=== PATIENT | female | born 1970 ===

== ENCOUNTER 2017-02-04 18:43 | Emergency (ER) | payer OTHER, SELFPAY ==
[2017-02-04 19:13] VITALS: BP 132/76; PULSE 71; RESP 18; TEMP 98.5; O2SAT 99
[2017-02-04] MEDS ORDERED: Sodium Chloride 0.9% 1,000 ML IV STA (19:24)
--- NOTE | 2017-02-04 19:27 | ED PDOC ---
HPI: Abdomen Time Seen by Provider: 02/04/17 19:25 Chief Complaint (Nursing): Abdominal Pain Chief Complaint (Provider): abdominal pain/vomiting History Per: Patient (47 y/o female here with intermittent epigastric pain daily in AM improved with food x 1 week. Notes moderate sore throat with difficulty swallowing also in AM. Notes increased urinary effort. Notes vomiting yesterday. Denies any diarrhea/uri/fevers/abdominal surgeries.) Past Medical History Reviewed: Historical Data, Nursing Documentation, Vital Signs Vital Signs: Last Vital Signs Temp 98.5 F 02/04/17 19:08 Pulse 71 02/04/17 19:08 Resp 18 02/04/17 19:08 BP 132/76 02/04/17 19:08 Pulse Ox 99 02/04/17 20:02 - Family History Family History: States: No Known Family Hx - Allergies Allergies/Adverse Reactions: Allergies Allergy/AdvReac Type Severity Reaction Status Date / Time No Known Allergies Allergy Verified 01/22/16 23:31 Review of Systems ROS Statement: Except As Marked, All Systems Reviewed And Found Negative ENT: Positive for: Throat Pain Gastrointestinal: Positive for: Vomiting, Abdominal Pain Physical Exam - Reviewed Nursing Documentation Reviewed: Yes Vital Signs Reviewed: Yes - Physical Exam Appears: Positive for: Well, Non-toxic, No Acute Distress Head Exam: Positive for: ATRAUMATIC, NORMAL INSPECTION, NORMOCEPHALIC Skin: Positive for: Normal Color, Warm, DRY Eye Exam: Positive for: EOMI, Normal appearance, PERRL ENT: Positive for: Normal ENT Inspection Neck: Positive for: Normal, Painless ROM Cardiovascular/Chest: Positive for: Regular Rate, Rhythm Respiratory: Positive for: CNT, Normal Breath Sounds Gastrointestinal/Abdominal: Positive for: Normal Exam (Obese abdomen.), Bowel Sounds, Soft, Tenderness (epigastric tendenress.) Back: Positive for: Normal Inspection Extremity: Positive for: Normal ROM Neurologic/Psych: Positive for: Alert, Oriented - ECG O2 Sat by Pulse Oximetry: 99 - Progress ED Course And Treament: Pepcid 20 mg iv x 1 dose Zofran 4 mg iv x 1 dose NS 1 liter wide open Disposition - Clinical Impression Clinical Impression: Abdominal pain in female - Patient ED Disposition Is Patient to be Admitted: Transfer of Care - Disposition Disposition: Transfer of Care Disposition Time: 20:02 Condition: FAIR Patient Signed Over To: Bhavesh Taylor
[2017-02-04 20:39] LABS: BASO # 0.1 K/uL (0.0-0.2); BASO % 1.3 % (0.0-2.0); EOS # 0.1 K/uL (0.0-0.7); EOS % 1.5 % (0.0-4.0); HEMATOCRIT 38.9 % (34.0-47.0); LYMPH % 40.9 % (20.0-40.0); MEAN CELL VOLUME 91.8 fl (81.0-99.0); MEAN CORPUSCULAR HEMOGLOBIN 30.6 pg (27.0-31.0); MEAN CORPUSCULAR HGB CONC 33.4 g/dL (33.0-37.0); MEAN PLATELET VOLUME 8.6 fl (7.2-11.7); MONO # 0.6 K/uL (0.0-0.8); MONO % 6.6 % (0.0-10.0); NEUT # 4.9 K/uL (1.8-7.0); NEUT % 49.7 % (50.0-75.0); RED CELL DISTRIBUTION WIDTH 12.9 % (11.5-14.5); WHITE BLOOD COUNT 9.8 K/uL (4.8-10.8)
[2017-02-04 20:42] LABS: RBC URINE 1 /hpf (0-3); URINE BILIRUBIN NEGATIVE (NEGATIVE); URINE BLOOD SMALL (NEGATIVE); URINE COLOR STRAW (YELLOW); URINE GLUCOSE (UA) NEG (Normal); URINE KETONE NEGATIVE (NEGATIVE); URINE LEUKOCYTE ESTERASE TRACE Leu/uL (Negative); URINE PROTEIN NEGATIVE (NEGATIVE); URINE UROBILINOGEN 0.2-1.0 mg/dL (0.2-1.0); WBC URINE < 1 /hpf (0-5)
[2017-02-04 20:56] LABS: ALB/GLOB RATIO 1.1 (1.0-2.1); ALKALINE PHOSPHATASE 99 U/L (38-126); ALT/SGPT 47 U/L (9-52); AST/SGOT 30 U/L (14-36); BILIRUBIN,TOTAL 0.3 mg/dl (0.2-1.3); BLOOD UREA NITROGEN 9 mg/dl (7-17); CALCIUM 9.3 mg/dL (8.4-10.2); CARBON DIOXIDE 27 mmol/L (22-30); CHLORIDE 104 mmol/L (98-107); GFR AFRICAN-AMERICAN > 60; GLUCOSE,RANDOM 107 mg/dL (65-105); LIPASE 116 U/L (23-300); SODIUM 140 mmol/l (132-148); TOTAL PROTEIN 8.3 G/DL (6.3-8.2)
--- NOTE | 2017-02-04 21:23 | US ---
EXAM: US Abdomen Limited, Right Upper Quadrant CLINICAL HISTORY: 47 years old, female; Signs and symptoms; Vomiting; Additional info: Evaluate for gallstone TECHNIQUE: Real-time ultrasound of the right upper quadrant with image documentation. COMPARISON: No relevant prior studies available. FINDINGS: Liver: Fatty infiltration. No mass. No intrahepatic ductal dilatation. Gallbladder: No gallstones. No wall thickening. No pericholecystic fluid. No sonographic Moe's sign. Common bile duct: No dilatation. No stones. Pancreas: Unremarkable as visualized. Right kidney: Normal echogenicity. No hydronephrosis. IMPRESSION: 1.No acute findings. 2.Non-acute findings are described above.
--- NOTE | 2017-02-04 23:22 | ED PDOC ---
- Laboratory Results Result Diagrams: 02/04/17 20:20 02/04/17 20:20 - ECG O2 Sat by Pulse Oximetry: 99 Medical Decision Making Medical Decision Making: Patient s/o from Ciaran Cota PA-C at 1900 pending labs and US. 2121: US abdomen impression: 1. No acute findings. 2129: Labs reviewed, show no clinically significant abnormalities. Patient reports improvement in pain and is stable for d/c. Dx: gastritis, pharyngitis stable F/U in the clinic in 1-2 days Scribe Attestation: Documented by Jessie Davidson acting as a scribe for Bhavesh Taylor MD. Provider Scribe Attestation: All medical record entries made by the Scribe were at my direction and personally dictated by me. I have reviewed the chart and agree that the record accurately reflects my personal performance of the history, physical exam, medical decision making, and the department course for this patient. I have also personally directed, reviewed, and agree with the discharge instructions and disposition. Disposition Counseled Patient/Family Regarding: Studies Performed, Diagnosis, Need For Followup - Clinical Impression Clinical Impression: Gastritis, Pharyngitis - POA Present On Arrival: None - Disposition Disposition: Routine/Home Disposition Time: 21:30 Condition: STABLE Prescriptions: Esomeprazole Magnesium [Nexium] 20 mg PO QAM #30 ecc Instructions: Gastritis (ED), Pharyngitis (ED) Print Language: ARMENIAN
== END 2017-02-05 03:00 | disposition home or self-care (01) ==
LOC: H.ER 18:43
DX: K29.70 Gastritis, unspecified, without bleeding (principal); R11.10 Vomiting, unspecified; J20.9 Acute bronchitis, unspecified
CPT/HCPCS: 76705; 80053; 81003; 81025; 82948; 83690; 85025; 86308; 87070; 87430; 96374; 96375; 99282; J1885; J2405; J7040

== ENCOUNTER 2017-07-17 15:38 | Emergency (ER) | payer SELFPAY ==
[2017-07-17 16:05] VITALS: BP 143/86; PULSE 62; RESP 18; TEMP 98; O2SAT 98
--- NOTE | 2017-07-17 16:18 | ED PDOC ---
HPI: Allergic Reaction Time Seen by Provider: 07/17/17 16:06 Chief Complaint (Nursing): Allergic Reaction History Per: Patient Additional Complaint(s): Pt. states for the past week she's had a pruitic rash on her L forearm which became worse 2 days ago and now has spread to her R forearm, L groin, and abdomen. Denies pain, fever, sick contacts, recent travel. Of note, pt. attempted to use OTC creams without relief. Past Medical History Reviewed: Historical Data, Nursing Documentation, Vital Signs Vital Signs: Last Vital Signs Temp 98 F 07/17/17 16:02 Pulse 62 07/17/17 16:02 Resp 18 07/17/17 16:02 BP 143/86 07/17/17 16:02 Pulse Ox 98 07/17/17 16:02 - Family History Family History: States: No Known Family Hx - Home Medications Home Medications: Ambulatory Orders Medication Instructions Recorded Esomeprazole Magnesium [Nexium] 20 mg PO QAM #30 ecc 02/04/17 DiphenhydrAMINE [Benadryl] 1 - 2 cap PO Q6 PRN #30 cap 07/17/17 Permethrin [Elimite] 1 appl TP ONCE #60 cream..g. 07/17/17 - Allergies Allergies/Adverse Reactions: Allergies Allergy/AdvReac Type Severity Reaction Status Date / Time No Known Allergies Allergy Verified 01/22/16 23:31 Review of Systems ROS Statement: Except As Marked, All Systems Reviewed And Found Negative Skin: Positive for: Rash Physical Exam - Physical Exam Appears: Positive for: Well, Non-toxic, No Acute Distress Skin: Positive for: Normal Color, Warm, Rash (scattered erythematous papules with burrowing without vesicles or pustules on b/l forearms and abdomen) - ECG O2 Sat by Pulse Oximetry: 98 Disposition - Clinical Impression Clinical Impression: Scabies - Patient ED Disposition Is Patient to be Admitted: No - Disposition Referrals: [facility] [Outside] Disposition: Routine/Home Disposition Time: 16:18 Condition: STABLE Additional Instructions: Follow up with [facility] on Friday without fail. Prescriptions: DiphenhydrAMINE [Benadryl] 1 - 2 cap PO Q6 PRN #30 cap PRN Reason: Itching / Pruritus Permethrin [Elimite] 1 appl TP ONCE #60 cream..g. Instructions: Scabies (ED)
== END 2017-07-17 16:33 | disposition home or self-care (01) ==
LOC: H.ER 15:38
DX: B86 Scabies (principal)